=== PATIENT | male | born 1985 | race Caucasian/White ===

== ENCOUNTER 2016-11-13 10:51 | Emergency (ER) | payer MEDICAID ==
[~2016-11-13] VITALS: Ht 175.2 cm; Wt 122.5 kg
[~2016-11-13 10:51] MED LIST: AMOXICILLIN,AM875 MG PO; ANAPROX DS550 MG PO; ASPIRIN325 MG PO; ATIVAN0.5 MG PO; BACTRIM DS 8001 TA1 PO; BENADRYL50 MG PO; FIORICET 325 MG1 TAB PO; FLEXERIL10 MG PO; KEFLEX500 MG PO; LOMOTIL 0.025 M1 TA1 PO; MEDROL DOSEPAK4 MG PO; MOTRIN PO; MOTRIN800 MG PO; NAPROSYN500 MG PO; NO DAILY MEDS; PERCOCET 325 MG1 TA2 PO; PREDNISONE20 MG PO; ROBAXIN750 MG PO; SUBOXONE 8 MG-21 TA1 SL; ZOFRAN ODT4 MG SL; Zofran4 MG PO
[2016-11-13 11:15] VITALS: BP 145/72
[2016-11-13] MEDS ORDERED: CEPHALEXIN500 M1 PO (13:09)
[2016-11-13] MEDS ORDERED: BACTRIM DS 8001 TA1 PO (13:09)
== END 2016-11-13 13:18 | disposition left against medical advice (07) ==
LOC: ED 10:51
DX: L03.012 Cellulitis of left finger (principal); F17.200 Nicotine dependence, unspecified, uncomplicated; Z88.8 Allergy status to other drugs, medicaments and biological substances

== ENCOUNTER 2017-03-18 10:23 | Emergency (ER) | payer OTHER ==
[~2017-03-18] VITALS: Ht 175.2 cm; Wt 113.4 kg
[~2017-03-18 10:23] MED LIST changes: -CLINDAMYCIN HC300 MG PO
[2017-03-18 10:27] VITALS: BP 116/72
[2017-03-18] MEDS ORDERED: CLINDAMYCIN HC300 MG PO (10:49)
[2017-03-18] MEDS ORDERED: NAPROSYN500 MG PO (10:49)
== END 2017-03-18 11:32 | disposition home or self-care (01) ==
LOC: ED 10:23
DX: L02.415 Cutaneous abscess of right lower limb (principal); R21 Rash and other nonspecific skin eruption; F17.200 Nicotine dependence, unspecified, uncomplicated; Z88.8 Allergy status to other drugs, medicaments and biological substances

== ENCOUNTER → 2017-03-18 | Outpatient (CLI) | payer OTHER ==
[~2017-03-18] MED LIST changes: +CEPHALEXIN500 M1 PO; +CLINDAMYCIN HC300 MG PO
[2017-03-18 12:16] LABS: ALBUMIN 3.5 gm/dl (3.1-4.5); BILIRUBIN, DIRECT 0.2 mg/dL (0.0-0.2)
== END | disposition home or self-care (01) ==
LOC: LAB 11:30
PROVIDERS: Family Medicine
DX: F11.20 Opioid dependence, uncomplicated (principal)

== ENCOUNTER 2017-03-28 07:55 | Emergency (ER) | payer OTHER ==
[~2017-03-28] VITALS: Ht 175.2 cm; Wt 108.9 kg
[~2017-03-28 07:55] MED LIST changes: +CLINDAMYCIN HC300 MG PO
[2017-03-28 07:58] VITALS: BP 124/74
[2017-03-28] MEDS ORDERED: SUBOXONE 8 MG-1 EACH SL (07:59)
[2017-03-28] MEDS ORDERED: DOXYCYCLINE100 M3 PO (08:38)
== END 2017-03-28 09:28 | disposition home or self-care (01) ==
LOC: ED 07:55
DX: L02.214 Cutaneous abscess of groin (principal); Z88.8 Allergy status to other drugs, medicaments and biological substances; Z79.899 Other long term (current) drug therapy; F17.200 Nicotine dependence, unspecified, uncomplicated

== ENCOUNTER 2019-09-03 21:42 | Emergency (ER) | payer OTHER ==
[~2019-09-03] VITALS: Ht 175.2 cm; Wt 72.1 kg
[~2019-09-03 21:42] MED LIST changes: +DOXYCYCLINE100 M3 PO; +SUBOXONE 8 MG-1 EACH SL
[2019-09-03] MEDS ORDERED: AUGMENTIN 875-875 MG PO (22:20)
[2019-09-03 23:37] VITALS: BP 118/72
== END 2019-09-04 00:24 | disposition home or self-care (01) ==
LOC: ED 21:42
DX: R42 Dizziness and giddiness (principal); H91.93 Unspecified hearing loss, bilateral; H66.93 Otitis media, unspecified, bilateral; Z88.8 Allergy status to other drugs, medicaments and biological substances; Z79.2 Long term (current) use of antibiotics; Z79.899 Other long term (current) drug therapy

== ENCOUNTER 2019-09-30 12:09 | Emergency (ER) | payer OTHER ==
[~2019-09-30] VITALS: Ht 175.2 cm; Wt 81.6 kg
[~2019-09-30 12:09] MED LIST changes: +AUGMENTIN 875-875 MG PO
[2019-09-30 12:13] VITALS: BP 117/63
[2019-09-30 13:36] LABS: URINE AMPHETAMINES > 1000 (1000ng/ml); URINE BARBITURATES < 200 (200ng/ml); URINE BENZODIAZEPINES < 200 (200ng/ml); URINE CANNABINOIDS (THC) > 50 (50ng/ml); URINE COCAINE > 300 (300ng/ml); URINE METHADONE < 300 (300ng/ml); URINE OPIATES < 300 (300ng/ml)
[2019-09-30 13:37] LABS: URINE PHENCYCLIDINE < 25 (25ng/ml)
[2019-09-30 13:44] LABS: BILIRUBIN NEGATIVE (NEGATIVE); BLOOD 3+ (NEGATIVE); CLARITY SL CLOUDY (CLEAR); COLOR YELLOW (YELLOW); GLUCOSE NEGATIVE (NEGATIVE); KETONE NEGATIVE (NEGATIVE); NITRITE NEGATIVE (NEGATIVE); SPECIFIC GRAVITY 1.015 (1.005-1.030); UROBILINOGEN 0.2 E.U./dl (0.2-1.0)
[2019-09-30 13:45] LABS: BACTERIA 1+; EPITHELIAL CELLS 0-2; LEUKO ESTERASE TRACE (NEGATIVE); MUCOUS 3+
== END 2019-09-30 14:44 | disposition home or self-care (01) ==
LOC: ED 12:09
PROVIDERS: Emergency Medicine
DX: F19.10 Other psychoactive substance abuse, uncomplicated (principal); F17.200 Nicotine dependence, unspecified, uncomplicated; Z88.8 Allergy status to other drugs, medicaments and biological substances